=== PATIENT | male | born 2000 | race African-American/Black ===

== ENCOUNTER 2020-01-31 00:21 | Emergency (ER) | payer BC ==
[~2020-01-31] VITALS: Ht 172.7 cm; Wt 65.9 kg
[2020-01-31] MEDS ORDERED: hydrOXYzine 25 MG TABLET PO PRN (01:00)
[2020-01-31 01:36] LABS: BASO % 1 % (0-3); EOS # 0.1 x10^3/uL (0.0-0.7); EOS % 1 % (0-3); HEMATOCRIT 40.9 % (39.0-53.0); HEMOGLOBIN 14.2 g/dL (13.0-17.5); LYMPH # 2.2 x10^3/uL (1.0-4.8); LYMPH % 26 % (24-48); MEAN CORPUSCULAR HEMOGLOBIN 29 pg (25-35); MEAN CORPUSCULAR HGB CONC 35 g/dL (31-37); MEAN CORPUSCULAR VOLUME 84 fL (79-100); MONO # 0.6 x10^3/uL (0.0-1.1); MONO % 7 % (0-9); NEUT # 5.5 x10^3/uL (1.8-7.7); NEUT % 65 % (31-73); PLATELET COUNT 255 x10^3/uL (140-400); RED BLOOD COUNT 4.87 x10^6/uL (4.30-5.70); RED CELL DISTRIBUTION WIDTH 14.3 % (11.5-14.5); WHITE BLOOD COUNT 8.4 x10^3/uL (4.0-11.0)
[2020-01-31 01:49] LABS: CREATININE 0.9 mg/dL (0.7-1.3); GFR 107.6; POTASSIUM 3.3 mmol/L (3.5-5.1)
[2020-01-31] MEDS ORDERED: POTASSIUM CHLORIDE 20 MEQ TABLET.ER. PO ONE (02:15)
--- NOTE | 2020-01-31 02:24 | PHYS DOC ---
Past Medical History Past Medical History: No Pertinent History Past Surgical History: Other Additional Past Surgical Histo: SINUS SX Smoking Status: Never Smoker Alcohol Use: Rarely General Adult EDM: Chief Complaint: Palpitations HPI: HPI: Patient is a 19-year-old male who presents to the emergency room complaining of an episode of palpitations. Patient states that he was working and lifting t hings at work when this started. He is never had anything like this previously. He states it lasted about 2 minutes and then resolved. He felt very anxious during and. He denies any shortness of breath or dizziness during it. He does not have any chest pain. Review of Systems: Review of Systems: General: Denies fever, chills, sweats, fatigue Eyes: Denies drainage, blurred vision, eye redness HENT: Denies rhinorrhea, sore throat, earache Respiratory: Denies cough, shortness of breath, wheezing Cardiac: Denies edema, chest pain reports palpitations GI: Denies abdominal pain, Nausea, vomiting MSK: Denies back pain, neck pain Skin: Denies rash, jaundice Neuro: Denies headache, dizziness Psychiatric: Denies SI/HI Heart Score: Risk Factors: Risk Factors: DM, Current or recent (<one month) smoker, HTN, HLP, family history of CAD, obesity. Risk Scores: Score 0 - 3: 2.5% MACE over next 6 weeks - Discharge Home Score 4 - 6: 20.3% MACE over next 6 weeks - Admit for Clinical Observation Score 7 - 10: 72.7% MACE over next 6 weeks - Early Invasive Strategies Current Medications: Current Medications Medications (Trade) Dose Ordered Sig/Radha Start Time Stop Time Status Last Admin Dose Admin Hydroxyzine HCl (Atarax) 25 mg 1X PRN 01/31/20 01:00 01/31/20 01:30 DC 01/31/20 01:20 25 MG Potassium Chloride (Klor-Con) 40 meq 1X ONCE 01/31/20 02:15 01/31/20 02:16 Allergies: Allergies: Allergies Coded Allergies Type Severity Reaction Last Updated Verified No Known Drug Allergies 01/31/20 No Physical Exam: PE: General: Awake, alert, NAD. Well Nourished, well hydrated. Cooperative HEENT: Atraumatic, EOMI, PERRL, airway patent, moist oral mucosa Neck: Supple, trachea midline Respiratory: CTA bilaterally, normal effort, no wheezing/crackles CV: RRR, no murmur, cap refill <2 GI: Soft, nondistended, nontender, no masses MSK: No obvious deformities Skin: Warm, dry, intact Neuro: A&O x3, speech NL, sensory and motor grossly intact, no focal deficits Psych: Normal affect, normal mood, not suicidal or homicidal Current Patient Data: Labs: Laboratory Tests Test 01/31/20 01:30 White Blood Count 8.4 x10^3/uL (4.0-11.0) Red Blood Count 4.87 x10^6/uL (4.30-5.70) Hemoglobin 14.2 g/dL (13.0-17.5) Hematocrit 40.9 % (39.0-53.0) Mean Corpuscular Volume 84 fL (79-100) Mean Corpuscular Hemoglobin 29 pg (25-35) Mean Corpuscular Hemoglobin Concent 35 g/dL (31-37) Red Cell Distribution Width 14.3 % (11.5-14.5) Platelet Count 255 x10^3/uL (140-400) Neutrophils (%) (Auto) 65 % (31-73) Lymphocytes (%) (Auto) 26 % (24-48) Monocytes (%) (Auto) 7 % (0-9) Eosinophils (%) (Auto) 1 % (0-3) Basophils (%) (Auto) 1 % (0-3) Neutrophils # (Auto) 5.5 x10^3/uL (1.8-7.7) Lymphocytes # (Auto) 2.2 x10^3/uL (1.0-4.8) Monocytes # (Auto) 0.6 x10^3/uL (0.0-1.1) Eosinophils # (Auto) 0.1 x10^3/uL (0.0-0.7) Basophils # (Auto) 0.0 x10^3/uL (0.0-0.2) Sodium Level 140 mmol/L (136-145) Potassium Level 3.3 mmol/L (3.5-5.1) L Chloride Level 104 mmol/L (98-107) Carbon Dioxide Level 25 mmol/L (21-32) Anion Gap 11 (6-14) Blood Urea Nitrogen 7 mg/dL (8-26) L Creatinine 0.9 mg/dL (0.7-1.3) Estimated GFR (Cockcroft-Gault) 107.6 Glucose Level 90 mg/dL (70-99) Calcium Level 9.0 mg/dL (8.5-10.1) Laboratory Tests 01/31/20 01:30 Laboratory Tests 01/31/20 01:30 Vital Signs: Vital Signs Date Time Temp Pulse Resp B/P (MAP) Pulse Ox O2 Delivery O2 Flow Rate FiO2 01/31/20 00:30 97.9 111 20 145/85 (105) 100 Room Air 97.9 EKG: EKG: [] Radiology/Procedures: Radiology/Procedures: [] Course & Med Decision Making: Course & Med Decision Making Pertinent Labs and Imaging studies reviewed. (See chart for details) Patient is a 19-year-old male who presents to the emergency room after having an episode of transient palpitations that has now resolved. Patient is overall very well-appearing. EKG shows sinus tachycardia. Patient is not having any symptoms at this time. Electrolytes will be ordered to rule out electrolyte changes. We discussed that this potentially could have been a transient arrhythmia. I have discussed with him that if this recurs he should return to the emergency room. Work-up is unremarkable other than some hypokalemia. Potassium replaced here in the emergency room. Patient's test results and vitals while in the ED were fully reviewed and discussed with the patient. Patient is stable and at this time does not need admission to the hospital. We have discussed strict return precautions and the importance of following up with their Primary Care Physician. Patient stated understanding and was given an opportunity to ask any questions. Patient is in agreement with plan. Dragon Disclaimer: Dragon Disclaimer: This electronic medical record was generated, in whole or in part, using a voice recognition dictation system. Departure Departure Impression: Primary Impression: Palpitation Disposition: HOME, SELF-CARE Condition: IMPROVED Referrals: NO PCP (PCP) Patient Instructions: Palpitations Justicifation of Admission Dx: Justifications for Admission: Justification of Admission Dx: N/A ZULEMA RED MD Jan 31, 2020 02:24
[2020-01-31 02:30] VITALS: BP 130/75
--- NOTE | 2020-01-31 05:46 | RAD ---
INDICATION: Reason: palpitations / Spl. Instructions: / History: COMPARISON: None. FINDINGS: 2 view of chest obtained. No focal airspace consolidation. Cardiomediastinal contour unremarkable. No acute osseous abnormality. IMPRESSION: * No focal airspace consolidation or edema. Electronically signed by: Sergo Nuñez MD (01/31/2020 5:44 AM) [id number]
--- NOTE | 2020-02-01 07:37 | EKG ---
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
== END 2020-01-31 02:38 | disposition home or self-care (01) ==
LOC: ER 00:21
DX: R00.2 Palpitations (principal); E87.6 Hypokalemia; Z98.890 Other specified postprocedural states
CPT/HCPCS: 36415; 71046; 80048; 85025; 93005; 99285

== ENCOUNTER 2020-12-30 20:39 | Emergency (ER) | payer SELFPAY ==
[~2020-12-30] VITALS: Ht 175.3 cm; Wt 70.4 kg
[2020-12-30 21:27] VITALS: BP 141/82
[2020-12-30] MEDS ORDERED: PRED20TA PO (22:36)
--- NOTE | 2020-12-30 22:36 | PHYS DOC ---
Past Medical History Past Medical History: No Pertinent History Past Surgical History: Other Additional Past Surgical Histo: SINUS SX Smoking Status: Never Smoker Alcohol Use: Rarely General Adult EDM: Chief Complaint: EARACHE/EAR PAIN HPI: HPI: Patient is a 20 year old male who presents with 5 day history of tinnitus bilaterally. Notes it is worse in his left ear currently. Also reports associated sinus tenderness and congestion beginning today. No known exposure to sick contacts. Patient has not been vaccinated for COVID. Denies ear pain, discharge, fevers/chills, cough, or shortness of breath. Review of Systems: Review of Systems: Constitutional: Denies fever or chills Eyes: Denies redness or eye pain HENT: Reports nasal congestion and bilateral tinnitus. Denies sore throat or ear pain Respiratory: Denies cough or shortness of breath Cardiovascular: Denies chest pain or palpitations GI: Denies abdominal pain, nausea, or vomiting : Denies dysuria or hematuria Musculoskeletal: Denies back pain or joint pain Integument: Denies rash or skin lesions Neurologic: Denies headache, focal weakness or sensory changes Complete systems were reviewed and found to be within normal limits, except as documented in this note. Heart Score: C/O Chest Pain: N/A Allergies: Allergies: Allergies Coded Allergies Type Severity Reaction Last Updated Verified No Known Drug Allergies 01/31/20 No Physical Exam: PE: Constitutional: Well developed, well nourished, no acute distress, non-toxic appearance HENT: Normocephalic, atraumatic. TMs clear bilaterally. There is moderate left turbinate swelling and slight rightward septal deviation noted as well. No rhinorrhea. No sinus tenderness. Moist mucous membranes. No pharyngeal erythema. Eyes: Conjunctiva normal, no discharge Neck: Normal range of motion, no tenderness, supple Lungs & Thorax: No respiratory distress, equal chest rise and fall. Lungs clear to auscultation bilaterally. Heart regular rate and rhythm without murmur. Abdomen: Soft, no tenderness Skin: Warm, dry, no erythema, no rash Back: No tenderness, no CVA tenderness Extremities: No tenderness, ROM intact, no edema Neurologic: Alert and oriented X 3, normal motor function, normal sensory function, no focal deficits noted Psychologic: Affect normal, judgment normal Current Patient Data: Vital Signs: Vital Signs Date Time Temp Pulse Resp B/P (MAP) Pulse Ox O2 Delivery O2 Flow Rate FiO2 12/30/20 21:27 98.4 100 18 141/82 (93) 97 Room Air 98.4 Course & Med Decision Making: Course & Med Decision Making 20 year old male presents with history and physical consistent with sinusitis. Vital signs stable while in the ED. No evidence of bacterial infection requiring antibiotics at this time. Patient stable for discharge with outpatient follow-up with PCP. Discussed findings and plan with patient, who acknowledges understanding and agreement. Dragon Disclaimer: Cruz Disclaimer: This electronic medical record was generated, in whole or in part, using a voice recognition dictation system. Departure Departure Impression: Primary Impression: Bilateral tinnitus Additional Impression: Sinusitis Qualified Codes: J01.90 - Acute sinusitis, unspecified Disposition: HOME / SELF CARE / HOMELESS Condition: STABLE Referrals: NO PCP (PCP) SILVIA MACK MD Patient Instructions: Sinusitis, [id number], Tinnitus Additional Instructions: Take over the counter decongestants and/or allergy medications Use bedside, humidifier at night when sleeping. Scripts Prednisone (PREDNISONE) 20 Mg Tablet 2 TAB PO DAILY, #8 TAB Start this prescription tomorrow, 12/31/20 Prov: PAUL OWEN DO 12/30/20 PALU OWEN DO Dec 30, 2020 22:36
[2020-12-30] MEDS ORDERED: DEXAMETHASONE 4 MG TABLET PO ONE (22:45)
== END 2020-12-30 23:00 | disposition home or self-care (01) ==
LOC: ER 20:39
DX: H93.13 Tinnitus, bilateral (principal); J01.90 Acute sinusitis, unspecified
CPT/HCPCS: 99283

== ENCOUNTER 2021-02-11 20:43 | Emergency (ER) | payer BC ==
[~2021-02-11] VITALS: Ht 175.3 cm; Wt 70.5 kg
[~2021-02-11 20:43] MED LIST: PRED20TA PO
--- NOTE | 2021-02-11 20:53 | PHYS DOC ---
Past Medical History Past Medical History: No Pertinent History Past Surgical History: Other Additional Past Surgical Histo: SINUS SX Smoking Status: Never Smoker Alcohol Use: Rarely General Adult EDM: Chief Complaint: ABDOMINAL PAIN HPI: HPI: Patient is a 20 year old male who present to ER for evaluation of epigastric abdominal pain for last 2 days patient denies any nausea vomiting, no dark stool. Patient denies any chest pain, no trouble breathing. Patient denies any cough or fever Review of Systems: Review of Systems: Constitutional: Denies fever or chills. [] Eyes: Denies change in visual acuity. [] HENT: Denies nasal congestion or sore throat. [] Respiratory: Denies cough or shortness of breath. [] Cardiovascular: Denies chest pain or edema. [] GI: Denies abdominal pain, nausea, vomiting, bloody stools or diarrhea. [] : Denies dysuria. [] Musculoskeletal: Denies back pain or joint pain. [] Integument: Denies rash. [] Neurologic: Denies headache, focal weakness or sensory changes. [] Endocrine: Denies polyuria or polydipsia. [] Lymphatic: Denies swollen glands. [] Psychiatric: Denies depression or anxiety. [] Heart Score: C/O Chest Pain: N/A Risk Factors: Risk Factors: DM, Current or recent (<one month) smoker, HTN, HLP, family history of CAD, obesity. Risk Scores: Score 0 - 3: 2.5% MACE over next 6 weeks - Discharge Home Score 4 - 6: 20.3% MACE over next 6 weeks - Admit for Clinical Observation Score 7 - 10: 72.7% MACE over next 6 weeks - Early Invasive Strategies Allergies: Allergies: Allergies Coded Allergies Type Severity Reaction Last Updated Verified No Known Drug Allergies 01/31/20 No Physical Exam: PE: Constitutional: Well developed, well nourished, no acute distress, non-toxic appearance. [] HENT: Normocephalic, atraumatic, bilateral external ears normal, oropharynx moist, no oral exudates, nose normal. [] Eyes: PERRLA, EOMI, conjunctiva normal, no discharge. [] Neck: Normal range of motion, no tenderness, supple, no stridor. [] Cardiovascular:Heart rate regular rhythm, no murmur [] Lungs & Thorax: Bilateral breath sounds clear to auscultation [] Abdomen: Bowel sounds normal, soft, no tenderness, no masses, no pulsatile masses. [] Skin: Warm, dry, no erythema, no rash. [] Back: No tenderness, no CVA tenderness. [] Extremities: No tenderness, no cyanosis, no clubbing, ROM intact, no edema. [] Neurologic: Alert and oriented X 3, normal motor function, normal sensory function, no focal deficits noted. [] Psychologic: Affect normal, judgement normal, mood normal. [] Current Patient Data: Labs: Laboratory Tests Test 02/11/21 21:06 02/11/21 21:15 Urine Collection Type Unknown Urine Color Yellow Urine Clarity Cloudy Urine pH 7.5 Urine Specific [place] 1.015 Urine Protein Negative mg/dL Urine Glucose (UA) Negative mg/dL Urine Ketones (Stick) 15 mg/dL Urine Blood Negative Urine Nitrite Negative Urine Bilirubin Negative Urine Urobilinogen Dipstick 1.0 mg/dL Urine Leukocyte Esterase Negative Urine RBC 0 /HPF Urine WBC 0 /HPF Urine Squamous Epithelial Cells Few /LPF Urine Bacteria 0 /HPF Urine Mucus Mod /LPF White Blood Count 5.2 x10^3/uL Red Blood Count 4.45 x10^6/uL Hemoglobin 13.7 g/dL Hematocrit 38.9 % Mean Corpuscular Volume 87 fL Mean Corpuscular Hemoglobin 31 pg Mean Corpuscular Hemoglobin Concent 35 g/dL Red Cell Distribution Width 13.2 % Platelet Count 285 x10^3/uL Neutrophils (%) (Auto) 70 % Lymphocytes (%) (Auto) 23 % Monocytes (%) (Auto) 6 % Eosinophils (%) (Auto) 1 % Basophils (%) (Auto) 1 % Neutrophils # (Auto) 3.6 x10^3/uL Lymphocytes # (Auto) 1.2 x10^3/uL Monocytes # (Auto) 0.3 x10^3/uL Eosinophils # (Auto) 0.1 x10^3/uL Basophils # (Auto) 0.0 x10^3/uL Sodium Level 139 mmol/L Potassium Level 3.6 mmol/L Chloride Level 104 mmol/L Carbon Dioxide Level 26 mmol/L Anion Gap 9 Blood Urea Nitrogen 4 mg/dL Creatinine 1.1 mg/dL Estimated GFR (Cockcroft-Gault) 102.2 BUN/Creatinine Ratio 4 Glucose Level 142 mg/dL Calcium Level 9.0 mg/dL Total Bilirubin 1.4 mg/dL Aspartate Amino Transf (AST/SGOT) 15 U/L Alanine Aminotransferase (ALT/SGPT) 17 U/L Alkaline Phosphatase 76 U/L Total Protein 7.2 g/dL Albumin 4.3 g/dL Albumin/Globulin Ratio 1.5 Lipase 94 U/L Current Medications Medications (Trade) Dose Ordered Sig/Radha Route PRN Reason Start Time Stop Time Status Last Admin Dose Admin Famotidine (Pepcid Vial) 20 mg 1X ONCE IVP 02/11/21 21:15 02/11/21 21:16 DC 02/11/21 21:17 Multi-Ingredient Mouthwash/Gargle (Gi Cocktail) 20 ml 1X ONCE SWSW 02/11/21 21:15 02/11/21 21:16 DC 02/11/21 21:13 EKG: EKG: [] Radiology/Procedures: Radiology/Procedures: [][facility] [address] [place] [address] IMAGING REPORT Signed PATIENT: BRE GILLESPIE ACCOUNT: [id number] : 2000 LOCATION: ER AGE: 20 SEX: M EXAM STATUS: PRE ER ORD. PHYSICIAN: SHAINA HDEZ DO REASON: abdominal pain PROCEDURE: ACUTE ABDOMEN SERIES INDICATION: Reason: abdominal pain / Spl. Instructions: / History: COMPARISON: Chest x-ray from January 2020 IMPRESSION: 3 views the chest and abdomen obtained. No focal airspace consolidation or edema. Cardiac silhouette is unremarkable. Air scattered throughout the large and small bowel in a nonspecific pattern. There is some prominence of the mucosal folds at the transverse colon. Causes such as colitis not excluded given this prominence. Electronically signed by: Jace Nuñez MD (02/11/2021 9:52 PM) [id number] DICTATED and SIGNED BY: JACE NUÑEZ MD DATE: 02/11/21 [id number] Course & Med Decision Making: Course & Med Decision Making Pertinent Labs and Imaging studies reviewed. (See chart for details) Patient is a 20-year-old male who presents with due to epigastric abdominal pain. Patient was given medication in ER, he feel much better. His lab work wa s normal, and acute abdominal series x-ray did not show any acute problem. Patient will be discharged home. Cruz Disclaimer: Cruz Disclaimer: This electronic medical record was generated, in whole or in part, using a voice recognition dictation system. Departure Departure Impression: Primary Impression: Gastritis Disposition: HOME / SELF CARE / HOMELESS Condition: STABLE Referrals: NO PCP (PCP) Please follow up with [facility] this week. [address], [address] [place] [address] Phone number: [phone] Patient Instructions: Gastritis, Adult Additional Instructions: Thank you for visiting our Emergency Department. We appreciate you trusting us with your care. If any additional problems come up don't hesitate to return to visit us. Please follow up with your primary care provider so they can plan additional care if needed and know about the problem that you had. If symptoms worsen come back to the Emergency Department. Any concerning symptoms that start such as chest pain, shortness of air, weakness or numbness on one side of the body, running high fevers or any other concerning symptoms return to the ER. Scripts Omeprazole Magnesium (PRILOSEC OTC) 20 Mg Tablet. 1 TAB PO DAILY for 30 Days, #30 TAB 0 Refills Prov: SHAINA HDEZ DO 02/11/21 Sucralfate (CARAFATE) 1 Gm Tablet 1 TAB PO QID for 14 Days, #56 TAB 0 Refills Prov: SHAINA HDEZ DO 02/11/21 SHAINA HDEZ DO Feb 11, 2021 20:53
[2021-02-11 21:13] LABS: BILIRUBIN,URINE NEGATIVE (NEG); CLARITY,URINE CLOUDY; COLOR,URINE YELLOW; NITRITE,URINE NEGATIVE (NEG); PH,URINE 7.5 (<5.0-8.0); PROTEIN,URINE NEGATIVE (NEG-TRACE)
[2021-02-11] MEDS ORDERED: LIDO:MAALOX 1:1 20 ML SINGLE DOSE. SWSW ONE (21:15)
[2021-02-11] MEDS ORDERED: FAMOTIDINE 20 MG/2 ML VIAL IVP ONE (21:15)
[2021-02-11 21:23] LABS: BASO % 1 % (0-3); EOS # 0.1 x10^3/uL (0.0-0.7); EOS % 1 % (0-3); HEMATOCRIT 38.9 % (39.0-53.0); HEMOGLOBIN 13.7 g/dL (13.0-17.5); LYMPH # 1.2 x10^3/uL (1.0-4.8); LYMPH % 23 % (24-48); MEAN CORPUSCULAR HEMOGLOBIN 31 pg (25-35); MEAN CORPUSCULAR HGB CONC 35 g/dL (31-37); MEAN CORPUSCULAR VOLUME 87 fL (79-100); MONO # 0.3 x10^3/uL (0.0-1.1); MONO % 6 % (0-9); NEUT # 3.6 x10^3/uL (1.8-7.7); NEUT % 70 % (31-73); PLATELET COUNT 285 x10^3/uL (140-400); RED BLOOD COUNT 4.45 x10^6/uL (4.30-5.70); RED CELL DISTRIBUTION WIDTH 13.2 % (11.5-14.5); WHITE BLOOD COUNT 5.2 x10^3/uL (4.0-11.0)
[2021-02-11 21:23] LABS: BACTERIA,URINE 0 /HPF (0-FEW); RBC,URINE 0 /HPF (0-2); WBC,URINE 0 /HPF (0-4)
[2021-02-11 21:36] LABS: CREATININE 1.1 mg/dL (0.7-1.3); GFR 102.2; POTASSIUM 3.6 mmol/L (3.5-5.1)
[2021-02-11 21:41] LABS: ALBUMIN 4.3 g/dL (3.4-5.0); ALBUMIN/GLOBULIN RATIO 1.5 (1.0-1.7); TOTAL BILIRUBIN 1.4 mg/dL (0.2-1.0); TOTAL PROTEIN 7.2 g/dL (6.4-8.2)
--- NOTE | 2021-02-11 21:54 | RAD ---
INDICATION: Reason: abdominal pain / Spl. Instructions: / History: COMPARISON: Chest x-ray from January 2020 IMPRESSION: 3 views the chest and abdomen obtained. No focal airspace consolidation or edema. Cardiac silhouette is unremarkable. Air scattered throughout the large and small bowel in a nonspecific pattern. There is some prominence of the mucosal folds at the transverse colon. Causes such as colitis not excluded given this promine nce. Electronically signed by: Sergo Nuñez MD (02/11/2021 9:52 PM) [id number]
[2021-02-11 21:57] VITALS: BP 135/80
[2021-02-11] MEDS ORDERED: SUCR1TAB35 PO (22:01)
[2021-02-11] MEDS ORDERED: OMEP20TA63 PO (22:01)
== END 2021-02-11 22:17 | disposition home or self-care (01) ==
LOC: ER 20:43
DX: K29.70 Gastritis, unspecified, without bleeding (principal)
CPT/HCPCS: 36415; 74022; 80053; 81001; 83690; 85025; 96374; 99284; J3490